=== PATIENT | female | born 1980 | race Caucasian/White ===

== ENCOUNTER 2019-08-08 17:19 | Emergency (ER) | payer OTHER ==
[~2019-08-08] VITALS: Ht 154.9 cm; Wt 72.6 kg
[2019-08-08] MEDS ORDERED: ONDANSETRON 4 MG/2 ML VIAL IV ONE (17:30)
[2019-08-08] MEDS ORDERED: IV NORMAL SALINE 1000 ML BAG IV ONE (17:30)
[2019-08-08 17:59] LABS: BASOPHILS # (AUTO) 0.1 K/uL (0.0-8.0); BASOPHILS % (AUTO) 1.1 % (0.0-2.0); EOSINOPHILS # (AUTO) 0.1 K/uL (0.0-0.7); EOSINOPHILS % (AUTO) 1.6 % (0.0-7.0); HEMOGLOBIN 12.4 g/dL (10.9-14.3); LYMPHOCYTES # (AUTO) 1.9 K/uL (20.0-40.0); MEAN CORPUSCULAR HEMOGLOBIN 19.4 uug (24.7-32.8); MEAN CORPUSCULAR HGB CONC 31 g/dL (32.3-35.6); MEAN CORPUSCULAR VOLUME 62.4 fL (75.5-95.3); MONOCYTES # (AUTO) 0.5 K/uL (2.0-10.0); MONOCYTES % (AUTO) 8.2 % (0.0-11.0); NEUTROPHILS # (AUTO) 3.7 K/uL (1.8-8.9); NEUTROPHILS % (AUTO) 59.1 % (38.5-71.5); PLATELET COUNT (AUTO) 264 K/uL (179-408); WHITE BLOOD COUNT (AUTO) 6.3 K/uL (3.8-11.8)
[2019-08-08] MEDS ORDERED: ONDANSETRON 4 MG/2 ML VIAL ONE (18:02)
[2019-08-08 18:12] LABS: *BILIRUBIN,URIN NEGATIVE (NEGATIVE); *BLOOD, URINE NEGATIVE (NEGATIVE); *CLARITY,URINE CLEAR (CLEAR); *COLOR,URINE YELLOW (YELLOW); *KETONES,URINE NEGATIVE (NEGATIVE); LEUKOCYTE ESTERASE ,URINE NEGATIVE (NEGATIVE); NITRITE, URINE NEGATIVE (NEGATIVE); UGLUCOSE NEGATIVE (NEGATIVE)
[2019-08-08 18:13] LABS: BILIRUBIN,DIRECT 0.3 mg/dL (0.0-0.2); BILIRUBIN,TOTAL 0.8 mg/dL (0.2-1.0); CREATININE 1.2 mg/dL (0.6-1.3); POTASSIUM 4.1 mmol/L (3.5-5.1); TOTAL PROTEIN, SERUM 6.6 g/dL (6.4-8.2)
[2019-08-08 18:15] LABS: *URINE HCG, QUAL NEGATIVE (NEGATIVE)
[2019-08-08 18:16] LABS: BACTERIA,URINE NONE SEEN /HPF (NONE SEEN); RBC,URINE 0-3 /HPF (0-3); SQUAMOUS EPITHELIAL CELL,UR FEW /HPF (NONE SEEN); WBC,URINE 0-3 /HPF (0-3)
[2019-08-08 18:22] LABS: EOSINOPHILS % (MANUAL) 1 % (0-8); LYMPHOCYTES % (MANUAL) 35 % (20-40); MONOCYTES % (MANUAL) 6 % (2-10); NEUTROPHILS % (MANUAL) 56 % (42-75)
--- NOTE | 2019-08-08 18:24 | NUR ---
pt denies nausea at this time pt requested hold on zofran and fluids until lab results come in
[2019-08-08] MEDS ORDERED: ONDANSETRON HCL 4 MG TABLET ONE (18:38)
[2019-08-08] MEDS: ONDANSETRON ODT 4 MG TAB.RAPDIS SL ONE (18:46)
--- NOTE | 2019-08-08 18:47 | NUR ---
Patient discharged to home in stable condition. Written and verbal after care instructions given. Patient verbalizes understanding of instructions. Stressed follow up or return to ER for worsening s/s. ambulatory w/ stable gait all belongings w/ pt
[2019-08-08 18:50] VITALS: BP 138/98
== END 2019-08-08 18:52 | disposition home or self-care (01) ==
LOC: ER 17:22
DX: R10.9 Unspecified abdominal pain (principal); R11.0 Nausea; R00.0 Tachycardia, unspecified; D50.9 Iron deficiency anemia, unspecified; D25.9 Leiomyoma of uterus, unspecified; N93.9 Abnormal uterine and vaginal bleeding, unspecified; R14.0 Abdominal distension (gaseous); K59.00 Constipation, unspecified
CPT/HCPCS: 36415; 70030-TC; 83690; 84703; 85025; A4663; J2405; J7030; Q0162

== ENCOUNTER 2020-05-01 21:19 | Emergency (ER) | payer OTHER ==
[~2020-05-01] VITALS: Ht 154.9 cm; Wt 72.1 kg
[2020-05-01] MEDS ORDERED: ESCI10TA PO (21:26)
[2020-05-01] MEDS ORDERED: SPIR1TAB PO (21:26)
[2020-05-01] MEDS ORDERED: THIA100T13 PO (21:26)
[2020-05-01] MEDS ORDERED: ASPI81TA31 PO (21:29)
[2020-05-01] MEDS ORDERED: FURO-152 PO (21:29)
[2020-05-01] MEDS ORDERED: [UNRECOGNIZED DRUG - OTHER] (21:29)
[2020-05-01] MEDS ORDERED: PENICILLIN G BENZATHINE 2.4 MMU/4 ML DISP.SYRIN IM ONE (21:45)
[2020-05-01] MEDS ORDERED: PENICILLIN V POTASSIUM 500 MG TABLET PO ONE (21:45)
[2020-05-01] MEDS ORDERED: HYDROCODONE/APAP 5-325MG TABLET PO ONE (21:45)
[2020-05-01] MEDS ORDERED: PENI500T PO (21:50)
[2020-05-01] MEDS ORDERED: OXYC-128 PO (21:50)
[2020-05-01] MEDS ORDERED: PENICILLIN V POTASSIUM 500 MG TABLET ONE (21:53)
[2020-05-01] MEDS ORDERED: HYDROCODONE/APAP 5-325MG TABLET ONE (21:53)
--- NOTE | 2020-05-01 22:01 | NUR ---
No adverse reactions noted from PO ATB given. Pt is AO x 4, and ambulatory. Cleared for DC by ER MD. Patient discharged to home in stable condition. Written and verbal after care instructions given. Emphasized importance of monitoring for adverse reactions to antibiotics and safety precs in taking narcotics. Patient verbalizes understanding of instructions. Stressed follow up or return to ER for worsening s/s. Ambulated out of ED in steady gait.
[2020-05-01 22:03] VITALS: BP 145/90
== END 2020-05-01 22:03 | disposition home or self-care (01) ==
LOC: ER 21:20
DX: K02.9 Dental caries, unspecified (principal); R03.0 Elevated blood-pressure reading, without diagnosis of hypertension; Z88.5 Allergy status to narcotic agent; Z91.040 Latex allergy status; D53.9 Nutritional anemia, unspecified; Z79.82 Long term (current) use of aspirin; I50.9 Heart failure, unspecified; Z79.899 Other long term (current) drug therapy
CPT/HCPCS: A4663

== ENCOUNTER 2020-08-21 10:39 | Emergency (ER) | payer OTHER ==
[~2020-08-21] VITALS: Ht 154.9 cm; Wt 77.1 kg
[~2020-08-21 10:39] MED LIST: ASPI81TA31 PO; ESCI10TA PO; FURO-152 PO; OXYC-128 PO; PENI500T PO; SPIR1TAB PO; THIA100T13 PO; [UNRECOGNIZED DRUG - OTHER]
[2020-08-21] MEDS ORDERED: ASPIRIN 325 MG TABLET PO ONE (11:00)
[2020-08-21] MEDS ORDERED: NITROGLYCERIN 0.4 MG/TAB BOTTLE SL ONE ×2 (11:00→11:13)
[2020-08-21] MEDS ORDERED: ASPIRIN 325 MG TABLET ONE (11:13)
[2020-08-21 11:17] LABS: CREATININE 1.2 mg/dL (0.6-1.3); POTASSIUM 4.4 mmol/L (3.5-5.1)
[2020-08-21 11:29] LABS: BILIRUBIN,DIRECT 0.2 mg/dL (0.0-0.2); BILIRUBIN,TOTAL 0.5 mg/dL (0.2-1.0); TOTAL PROTEIN, SERUM 6.9 g/dL (6.4-8.2)
[2020-08-21 11:37] LABS: BASOPHILS # (AUTO) 0.1 K/uL (0.0-8.0); BASOPHILS % (AUTO) 1.4 % (0.0-2.0); EOSINOPHILS # (AUTO) 0.2 K/uL (0.0-0.7); EOSINOPHILS % (AUTO) 2.2 % (0.0-7.0); HEMATOCRIT 37.1 % (31.2-41.9); HEMOGLOBIN 11.4 g/dL (10.9-14.3); LYMPHOCYTES # (AUTO) 2.3 K/uL (20.0-40.0); LYMPHOCYTES % (AUTO) 31.3 % (20.5-51.5); MEAN CORPUSCULAR HGB CONC 31 g/dL (32.3-35.6); MEAN CORPUSCULAR VOLUME 61.8 fL (75.5-95.3); MONOCYTES # (AUTO) 0.8 K/uL (2.0-10.0); MONOCYTES % (AUTO) 11.2 % (0.0-11.0); NEUTROPHILS % (AUTO) 53.9 % (38.5-71.5); PLATELET COUNT (AUTO) 278 K/uL (179-408); RED BLOOD CELL COUNT(AUTO) 5.99 MIL/uL (3.63-4.92); WHITE BLOOD COUNT (AUTO) 7.4 K/uL (3.8-11.8)
[2020-08-21] MEDS ORDERED: FUROSEMIDE 20 MG TABLET PO ONE (11:45)
[2020-08-21] MEDS ORDERED: ONDANSETRON ODT 4 MG TAB.RAPDIS SL ONE (11:45)
[2020-08-21] MEDS ORDERED: FURO-151 PO (11:46)
[2020-08-21] MEDS ORDERED: FUROSEMIDE 20 MG TABLET ONE (11:53)
[2020-08-21] MEDS ORDERED: ONDANSETRON ODT 4 MG TAB.RAPDIS ONE (11:53)
[2020-08-21 11:55] VITALS: BP 131/89
--- NOTE | 2020-08-21 11:55 | NUR ---
Patient discharged to home in stable condition. Written and verbal after care instructions given. Patient verbalizes understanding of instructions. Stressed follow up or return to ER for worsening s/s.pt walks in steady gait.
[2020-08-21] MEDS ORDERED: OXYCODONE/APAP 5-325 MG TABLET PO ONE (12:00)
== END 2020-08-21 11:56 | disposition home or self-care (01) ==
LOC: ER 10:39
DX: R00.2 Palpitations (principal); R94.31 Abnormal electrocardiogram [ECG] [EKG]; I50.9 Heart failure, unspecified; Z79.899 Other long term (current) drug therapy; Z88.5 Allergy status to narcotic agent; Z91.040 Latex allergy status; I51.7 Cardiomegaly
CPT/HCPCS: 36415; 70030-TC; 71045; 85025; 85730; 93005; A4663; Q0162

== ENCOUNTER 2021-07-10 21:17 | Emergency (ER) | payer OTHER ==
[~2021-07-10 21:17] MED LIST changes: +FURO-151 PO
--- NOTE | 2021-07-10 21:55 | NUR ---
Patient was called to be triaged but was not present in the waiting room or outside of ER.
--- NOTE | 2021-07-10 22:05 | NUR ---
Patient was called to be triaged but was not present in the waiting room or outside of ER. PATIENT WAS NOT TRIAGED OR SEEN BY ERMD.
== END 2021-07-10 22:05 | disposition left against medical advice (07) ==
LOC: ER 21:23
DX: Z53.21 Procedure and treatment not carried out due to patient leaving prior to being seen by health care provider (principal)